=== PATIENT | male | born 1940 | race Caucasian/White ===

== ENCOUNTER 2016-09-10 06:54 | Inpatient (IN) | payer MEDICARE, OTHER ==
--- NOTE | ~2016-09-10 | OP ---
Record Of Operation [place] [id number] [facility] [place]. [address] NAME: HOLLIE PAUL : 42 STATUS : ADM IN PAT#: [id number] AGE: 76 ADM/REG DATE : 09/10/16 MR#: [id number] REPORT SERV DATE: 09/13/16 DICTATED BY: BRYN STEWART II DATE: 09/13/16 REPORT STATUS : Draft TRANSCRIBED BY: MODL DATE: 09/13/16 DATE OF PROCEDURE: 09/10/2016 PREOPERATIVE DIAGNOSES: 1. Left lower extremity radiculopathy. 2. L5-S1 stenosis. 3. History of fusion, multilevel. POSTOPERATIVE DIAGNOSES: 1. Left lower extremity radiculopathy. 2. L5-S1 stenosis. 3. History of fusion, multilevel. PROCEDURE: 1. Complete facetectomy L5-S1. 2. Interbody arthrodesis L5-S1. 3. Application of prosthetic device L5-S1. 4. Posterolateral arthrodesis L5-S1. 5. Removal of hardware, L4-5. 6. Posterior nonsegmental instrumentation, L5-S1. 7. Use of local autograft, allograft substitute, and bone morphogenic protein. 8. Use of the microscope and stereotactic spinal imaging. SURGEON: Bryn Stewart M.D. FLUIDS: 1200 mL LR. ESTIMATED BLOOD LOSS: 75 mL. DRAINS: One drain. COMPLICATIONS: None. ANTIBIOTIC: Preoperatively. IMPLANTS: Alphatec. PREOPERATIVE HISTORY: This is a very friendly, 76-year-old gentleman, who did well following his previous surgery, which was done remotely. He has now developed significant pain radiating in the left buttock, radiating into the posterior aspect of the thigh and the calf. We discussed the pros and cons of surgery versus continuing nonoperative care. We discussed the fact that surgery had a risk of infection, bleeding, as well as a small chance of nerve root damage and a small chance of failure to improve upon his leg pain. We discussed that fortunately he was not having severe back pain but primarily leg pain. DESCRIPTION OF PROCEDURE: After informed consent was obtained, the patient was brought to Record Of Operation [place] [id number] [facility] [place]. [address] NAME: HOLLIE PAUL : 42 STATUS : ADM IN PAT#: [id number] AGE: 76 ADM/REG DATE : 09/10/16 MR#: [id number] REPORT SERV DATE: 09/13/16 DICTATED BY: BRYN STEWART II DATE: 09/13/16 REPORT STATUS : Draft TRANSCRIBED BY: PEPPER DATE: 09/13/16 the operating room at his request and general anesthesia achieved. He was placed in the prone position. The back was prepped and draped in a sterile fashion. The stereotactic spinal pin was placed into the right iliac crest followed by completion of the intraoperative CT scan. The stereotactic guidance was then used throughout the remainder of the case. At this point, the hardware was removed through the minimally invasive incision on the left. The L4 and L5 screws were completely removed. Next, the microscope was brought into place and the through the quadrant retractor, the L5- S1 facet was now completely removed. A [id number] decompression was achieved. The L5 and S1 nerve roots were now found to be well decompressed following removal of the lamina on the left as well as the ligamentum flavum. Next, the interbody arthrodesis was now initiated with the diskectomy. The S1 nerve root was carefully retracted. The disk was now removed and the endplates prepared with the curettes and the kenton. The punctate bleeding bone was identified on both endplates. Following irrigation, the local autograft and allograft substitute and a very small piece of bone morphogenic protein were placed into the anterior column. Next, the prosthetic device was chosen and placed into the anterior column. Excellent fit was obtained. Next, the right-sided incision was now performed, and the minimally invasive retractor placed and the L4-5 screws removed. Next, L5 and S1 screws were applied using stereotactic guidance. A repeat CT scan confirmed acceptable placement of the implants bilaterally. The rods were then final tightened. Next, on the left, we then decorticated the transverse process of L5 and the sacral ala. The local autograft, allograft substitute, and bone morphogenic protein were placed along the decorticated surfaces. A deep drain was placed on the left followed by standard closure of the bilateral incisions. The standard closure was performed and standard dressings applied. The patient was extubated and transferred to PACU in stable condition. EVA/PEPPER Bryn Stewart II, M.D. / [id number] CC: Janet Chahal II, DO
--- NOTE | ~2016-09-10 | DS ---
Discharge Summary [facility] [address] [facility] [place]. [address] NAME: HOLLIE PAUL : 42 STATUS : DIS IN PAT#: [id number] AGE: 76 ADM/REG DATE : 09/10/16 MR#: [id number] REPORT SERV DATE: 09/26/16 DICTATED BY: BRYN STEWART II DATE: 09/25/16 REPORT STATUS : Draft TRANSCRIBED BY: MODVal DATE: 09/25/16 Data Collection from hospitalization DISCHARGE DIAGNOSES: 1. Left lower extremity radiculopathy. 2. L5-S1 stenosis. 3. History of fusion-multilevel. 4. Hypertension. 5. History of myocardial infarction. 6. Gastroesophageal reflux disease. 7. Macular degeneration. 8. Tobacco use. 9. Hyperlipidemia. CONSULTATIONS: None. PROCEDURES PERFORMED: Complete facetectomy, L5-S1; interbody arthrodesis, L5-S1; application of prosthetic device, L5-S1; posterolateral arthrodesis, L5-S1; removal of hardware, L4-5; posterior nonsegmental instrumentation, L5-S1; use of local autograft, allograft substitute, and bone morphogenetic protein; use of microscope and stereotactic spinal imaging, 09/10/2016. PATHOLOGY: Bone and soft tissue, lumbar spine excision-cartilage, bone, and skeletal muscle. Orthopedic hardware removal-gross diagnosis. DISCHARGE MEDICATIONS: Beaver 5/325 one tablet every six hours as needed, Toprol-XL 25 mg at bedtime, Protonix 40 mg at bedtime, Pravachol 40 mg at bedtime. CONDITION AT DISCHARGE: Stable. DISPOSITION: The patient was discharged home on a regular diet with activities as instructed. He would follow up with me, 10/03/2016. HOSPITAL COURSE: This is a 76-year-old man, who complained of lumbar spine-related symptoms. The symptoms are located in the low back with radiation into the bilateral lower extremities, left greater than right with associated numbness, tingling, and weakness. The patient has left lower extremity radiculopathy and L5-S1 stenosis. Treatment options were discussed and it was elected to proceed with surgical intervention. He was admitted to the hospital at this time for further evaluation and treatment. Upon admission, he was taken to the operating room, where he underwent the above-mentioned procedure. He tolerated this well and there were no complications. On postop day #1, he was stable. We encouraged him to mobilize. He was evaluated by Physical Therapy. On postop day #2, he was alert and cooperative. Respiratory effort was normal. His lower extremity radiculopathy was improving, but he did complain of a lot of back pain. NAVDEEP drain was still in place. Discharge planning was performed. His pain medication had been increased for better control. Magnesium citrate was added to his regimen. He was encouraged to ambulate. He did have a bowel movement. On 09/17/2016, he continued to do Discharge Summary [address] [id number] [place]. [address] NAME: HOLLIE PAUL : 42 STATUS : DIS IN PAT#: [id number] AGE: 76 ADM/REG DATE : 09/10/16 MR#: [id number] REPORT SERV DATE: 09/26/16 DICTATED BY: BRYN STEWART II DATE: 09/25/16 REPORT STATUS : Draft TRANSCRIBED BY: PEPPER DATE: 09/25/16 well. Discharge instructions were given. Due to his improved and stable condition, he was discharged home with the above-stated instructions. Information collected by: Corinne Boyd I submit the above information as my discharge summary. SHEILA/PEPPER Bryn Stewart II, M.D. / [id number] CC: Janet Chahal II, DO
[~2016-09-10 06:54] MED LIST: ATV1 PO; AUG875 PO; FLAG500TAB PO; FLEX PO; LEVAQUIN5T PO; LORT7 PO; LORTAB10 PO; MSCONT15; NORCO1 TAB PO; PCET; PCET PO; PR25 PO; PRAVAC PO; PRAVACHOL40 MG PO; PRILO PO; PRIN10 PO; PROTONIX PO; TOPXL25 PO; V2; ZESTORETIC1 TA1 PO; ZOFRANODT8 PO; [UNRECOGNIZED DRUG - OTHER]; [UNRECOGNIZED DRUG - OTHER] TOP
[2016-09-11 04:37] LABS: BASOPHILS 0.1 %; BASOPHILS ABSOLUTE 0.01 10/3/uL (0.0-0.16); EOSINOPHILS 0 %; HEMOGLOBIN 13.4 g/dL (13.6-17.8); IMMATURE GRANULOCYTES 0.3 %; IMMATURE GRANULOCYTES ABSOLUTE 0.03 10/3/uL (0.0-0.11); LYMPHOCYTES 8.3 %; LYMPHOCYTES ABSOLUTE 0.87 10/3/uL (0.67-4.30); MEAN CORPUS HGB CONC 34.7 g/dL (32.0-36.0); MEAN CORPUSCULAR HEMOGLOB 33.8 pg (26.0-34.0); MEAN CORPUSCULAR VOLUME 97.2 fL (80-100); MEAN PLATELET VOLUME 9.1 fL (9.2-13.0); MONOCYTES 3.6 %; MONOCYTES ABSOLUTE 0.38 10/3/uL (0.21-1.20); NEUTROPHILS 87.7 %; NEUTROPHILS ABSOLUTE 9.25 10/3/uL (2.02-8.40); PLATELET COUNT 262 10/3/uL (150-400); RBC DISTRIBUTION WIDTH 14.7 % (12.0-16.0); RED CELL COUNT 3.97 10/6/uL (4.7-6.1); WHITE BLOOD CELLS 10.5 10/3/uL (4.5-10.5)
[2016-09-11 04:43] LABS: HEMATOCRIT 38.6 % (40.0-51.0); MANUAL DIFF NO %
[2016-09-17] MEDS ORDERED: NORCO1 TA1 PO (09:14)
== END 2016-09-17 11:33 | disposition home or self-care (01) | DRG 460 ==
LOC: SDC/OF 06:54 → PACU 14:04 → 3SO 15:51
PROVIDERS: Orthopaedic Surgery
PROC: 0SG30AJ Fusion of Lumbosacral Joint with Interbody Fusion Device, Posterior Approach, Anterior Column, Open Approach (ICD-10-PCS; principal; 2016-09-10 08:45)
PROC: 0SP004Z Removal of Internal Fixation Device from Lumbar Vertebral Joint, Open Approach (ICD-10-PCS; 2016-09-10 08:45)
PROC: 4A11X4G Monitoring of Peripheral Nervous Electrical Activity, Intraoperative, External Approach (ICD-10-PCS; 2016-09-10 08:45)
DX: M51.17 Intervertebral disc disorders with radiculopathy, lumbosacral region (principal); J44.9 Chronic obstructive pulmonary disease, unspecified; I10 Essential (primary) hypertension; E78.5 Hyperlipidemia, unspecified; K21.9 Gastro-esophageal reflux disease without esophagitis
CPT/HCPCS: 80048; 82962; 85014; 85018; 85025; 87641; 88300; 88304; 88311; 93005; 97110-GP; 97116-GP; 97161-GP; 97164-GP; A9270-GY; C1713; C1769; G8978-CK-GP; G8979-CI-GP; J0690; J1030; J1170; J2250; J2405; J2710; J3010; J3370